=== PATIENT | male | born 1935 | race Caucasian/White ===

== ENCOUNTER 2017-05-15 08:02 | Emergency (ER) | payer MEDICARE, BC ==
[~2017-05-15] VITALS: Ht 185.4 cm; Wt 81.6 kg
[2017-05-15 08:08] VITALS: BP 124/67
== END 2017-05-15 08:31 | disposition home or self-care (01) ==
LOC: ER 08:06
DX: J02.9 Acute pharyngitis, unspecified (principal); E11.9 Type 2 diabetes mellitus without complications
CPT/HCPCS: 99281; A4606; Z7502; Z7610

== ENCOUNTER 2017-06-08 11:17 | Emergency (ER) | payer MEDICARE, BC ==
[~2017-06-08] VITALS: Ht 182.9 cm; Wt 83.9 kg
--- NOTE | 2017-06-08 11:24 | NUR ---
L LOWER EXTREMITY SWELLING AND TENDERNESS X 1 WEEK
--- NOTE | 2017-06-08 11:55 | NUR ---
LAC #20 IV ACCESS. BLOOD SAMPLE COLLECTED SENT TO LAB
[2017-06-08 12:03] LABS: BASOPHILS # (AUTO) 0.1 /CMM (0.0-0.2); EOSINOPHILS # (AUTO) 0.1 /CMM (0.0-0.7); EOSINOPHILS % (AUTO) 1.1 % (0.0-6.0); HEMATOCRIT 40 % (39-51); HEMOGLOBIN 12.6 g/dL (13.5-17.5); LYMPHOCYTES # (AUTO) 2.2 /CMM (0.8-4.8); LYMPHOCYTES % (AUTO) 29.6 % (20.0-44.0); MEAN CORPUSCULAR HEMOGLOBIN 27 PG (26.0-33.0); MEAN CORPUSCULAR HGB CONC 31 g/dl (31.0-36.0); MEAN CORPUSCULAR VOLUME 85 fL (80-96); MONOCYTES # (AUTO) 0.7 /CMM (0.1-1.30); NEUTROPHILS # (AUTO) 4.3 /CMM (1.8-8.9); NEUTROPHILS % (AUTO) 59.3 % (43.0-81.0); PLATELET COUNT (AUTO) 181 /CMM (150-450); RDW COEFFICIENT OF VARIATION 12.5 (11.5-15.0); RED BLOOD CELL COUNT(AUTO) 4.76 MIL/uL (4.5-6.0); WHITE BLOOD COUNT (AUTO) 7.4 K/uL (4.3-11.0)
[2017-06-08] MEDS: PIPERACILLIN /TAZOBACTAM 3.375 G in IV D5W 50 ML IV ONE (12:06)
[2017-06-08 12:13] LABS: CALCIUM, SERUM 8.7 mg/dL (8.5-10.1); CARBON DIOXIDE 27 mmol/L (21-32); CHLORIDE 101 mmol/L (98-107); CREATININE 1.3 mg/dL (0.6-1.3); GLUCOSE 302 mg/dL (74-106); POTASSIUM 4.6 mmol/L (3.5-5.1); SODIUM SERUM 136 mmol/L (136-145); UREA NITROGEN, BLOOD 36 mg/dL (7-18)
[2017-06-08 12:17] LABS: INR 0.96 (0.87-1.13)
[2017-06-08 12:19] LABS: ALANINE AMINOTRANSFERASE 32 U/L (12-78); ALBUMIN 3.1 g/dL (3.4-5.0); ALKALINE PHOSPHATASE 74 U/L (46-116); ASPARTATE AMINOTRANSFERASE 23 U/L (15-37); BILIRUBIN,TOTAL 0.8 mg/dL (0.2-1.0); TOTAL PROTEIN, SERUM 6.9 g/dL (6.4-8.2)
[2017-06-08] MEDS ORDERED: INSULIN REGULAR, HUMAN 100 UNIT/ML 10 ML VIAL ONE (12:29)
[2017-06-08] MEDS: INSULIN REGULAR, HUMAN 100 UNIT/ML 10 ML VIAL IV ONE (12:30)
--- NOTE | 2017-06-08 13:27 | NUR ---
GREEN INSPECTOR AT BEDSIDE
--- NOTE | 2017-06-08 14:03 | NUR ---
IV removed. Catheter intact and site benign. Pressure and 4x4 applied to site. No bleeding noted.
--- NOTE | 2017-06-08 14:03 | NUR ---
Patient discharged to home in stable condition. Written and verbal after care instructions given. Patient verbalizes understanding of instruction.
[2017-06-08 14:05] VITALS: BP 132/84
== END 2017-06-08 14:12 | disposition home or self-care (01) ==
LOC: ER 11:21
DX: L03.116 Cellulitis of left lower limb (principal); E11.621 Type 2 diabetes mellitus with foot ulcer
CPT/HCPCS: 36415; 80053-TC; 85025-TC; 85610-TC; 85730-TC; 93971-TC; A4606; A6402; J1815; J2543; J7060; Z7610

== ENCOUNTER 2017-06-15 15:48 | Emergency (ER) | payer MEDICARE, BC ==
[~2017-06-15] VITALS: Ht 182.9 cm; Wt 83.9 kg
[2017-06-15 15:50] VITALS: BP 142/80
== END 2017-06-15 17:39 | disposition home or self-care (01) ==
LOC: ER 15:56
DX: R68.2 Dry mouth, unspecified (principal); E11.9 Type 2 diabetes mellitus without complications
CPT/HCPCS: 99281; A4606; Z7502; Z7610

== ENCOUNTER 2017-06-28 10:47 | Inpatient (IN) | payer MEDICARE, BC ==
[~2017-06-28] VITALS: Ht 182.9 cm; Wt 88.0 kg
--- NOTE | 2017-06-28 10:56 | NUR ---
LEFT FOOT WOUND CHECK. NO ACTIVE BLEED
--- NOTE | 2017-06-28 11:27 | NUR ---
LAC #20 iv access. blood sample collected sent to lab
[2017-06-28] MEDS ORDERED: PIPERACILLIN /TAZOBACTAM 3.375 G in IV D5W 50 ML IV ONE (11:30)
[2017-06-28] MEDS ORDERED: VANCOMYCIN 1 GM in IV D5W 250 ML IV ONE (11:30)
[2017-06-28] MEDS ORDERED: IV NS 0.9% 1,000 ML BAG IV ONE (11:30)
[2017-06-28] MEDS ORDERED: INSU100I4 SQ (11:34)
--- NOTE | 2017-06-28 11:36 | NUR ---
CALLED NURSING SOCIAL WORK SUPERVISOR FOR M/S BED
[2017-06-28 11:40] LABS: CARBON DIOXIDE 29 mmol/L (21-32); CHLORIDE 104 mmol/L (98-107); CREATININE 1.4 mg/dL (0.6-1.3); GLUCOSE 80 mg/dL (74-106); POTASSIUM 4.6 mmol/L (3.5-5.1); SODIUM SERUM 139 mmol/L (136-145); UREA NITROGEN, BLOOD 27 mg/dL (7-18)
[2017-06-28 11:44] LABS: INR 0.95 (0.87-1.13); PROTHROMBIN TIME 9.9 SECS (9.5-12.7)
[2017-06-28 11:52] LABS: BASOPHILS % (AUTO) 0.3 % (0.0-2.0); EOSINOPHILS # (AUTO) 0.1 /CMM (0.0-0.7); EOSINOPHILS % (AUTO) 0.9 % (0.0-6.0); HEMATOCRIT 44 % (39-51); HEMOGLOBIN 14.3 g/dL (13.5-17.5); LYMPHOCYTES # (AUTO) 3.8 /CMM (0.8-4.8); LYMPHOCYTES % (AUTO) 30.6 % (20.0-44.0); MEAN CORPUSCULAR HEMOGLOBIN 28 PG (26.0-33.0); MEAN CORPUSCULAR HGB CONC 32 g/dl (31.0-36.0); MEAN CORPUSCULAR VOLUME 85 fL (80-96); MONOCYTES # (AUTO) 1.2 /CMM (0.1-1.30); MONOCYTES % (AUTO) 9.6 % (2.0-12.0); NEUTROPHILS # (AUTO) 7.3 /CMM (1.8-8.9); NEUTROPHILS % (AUTO) 58.6 % (43.0-81.0); PLATELET COUNT (AUTO) 202 /CMM (150-450); RDW COEFFICIENT OF VARIATION 13.2 (11.5-15.0); RED BLOOD CELL COUNT(AUTO) 5.16 MIL/uL (4.5-6.0); WHITE BLOOD COUNT (AUTO) 12.5 K/uL (4.3-11.0)
--- NOTE | 2017-06-28 12:25 | NUR ---
PAGED DR ZA BROWER FOR PANEL ADMISSION
--- NOTE | 2017-06-28 12:35 | NUR ---
LUBE MAN AT BEDSIDE
--- NOTE | 2017-06-28 12:43 | NUR ---
REPORT GIVEN TO MURTAZA WELDING MACHINE FEEDER. DR BROWER ADMITTING - CELLULITIS. S/P WOUND DEBRIDEMENT OF LEFT FOOT BY RADHA GUZMAN.
[2017-06-28 13:30] VITALS: BP 117/65
[2017-06-28] MEDS ORDERED: ONDANSETRON HCL/PF 4 MG/2 ML VIAL IVP PRN (13:30)
[2017-06-28] MEDS ORDERED: FEE PK DOSING 1 MIN EA MC ONE (13:30)
[2017-06-28] MEDS ORDERED: MAG HYDROX/AL HYDROX/SIMETH 30 ML UDC PO PRN (13:30)
[2017-06-28] MEDS ORDERED: MAGNESIUM HYDROXIDE 30 ML UDC PO PRN (13:30)
[2017-06-28] MEDS ORDERED: Z GUARD REMEDY 2 OZ OINT TP PRN (13:30)
[2017-06-28] MEDS ORDERED: DEXTROSE 50%-WATER 50 ML DISP.SYRIN IV PRN (13:30)
[2017-06-28] MEDS ORDERED: ACETAMINOPHEN 325 MG TABLET PO PRN (13:30)
[2017-06-28] MEDS ORDERED: HYDROCODONE/APAP 5/325MG 1 EACH TABLET PO PRN (13:30)
[2017-06-28 16:35] VITALS: BP 144/76
[2017-06-28] MEDS: BLOOD SUGAR DIAGNOSTIC 1 EACH STRIP VI SCH ×2 (17:27→21:43)
[2017-06-28] MEDS: INSULIN REGULAR, HUMAN 100 UNIT/ML 3 ML VIAL SQ PRN (17:29)
[2017-06-28] MEDS: CEFTRIAXONE 1 G in IV D5W 50 ML IV SCH (17:33)
[2017-06-28] MEDS: IV NS 0.9% 1,000 ML IV PRN (17:43)
[2017-06-28] MEDS ORDERED: PIPERACILLIN /TAZOBACTAM 3.375 G in IV D5W 50 ML IV SCH (18:00)
--- NOTE | 2017-06-28 19:30 | NUR ---
MS RN NOTES RECEIVED A/O X4,SITTING OM EDGE OF BED.LEFT FOOT DRESSING INTACT AND DRY,REDNESS NOTED ON BOTH LEGS.ENCOURAGED TO ELEVATE ON PILLOWS WHILE SLEEPING.SALINE LOCK RIGHT AC INTACT AND PATENT.NS AT 75ML/HR RATE IN PROGRESS VIA IV PUMP,SITE PATENT.AMBULATE WITH STEADY GAIT.CALL LIGHT IN REACH,NEEDS ANTICIPATED.
[2017-06-28 20:00] VITALS: BP 135/80
[2017-06-28] MEDS: LORAZEPAM 0.5 MG TABLET PO PRN (20:33)
--- NOTE | 2017-06-28 20:33 | NUR ---
MS RN NOTES FEELING ANXIOUS,MEDICATED WITH ATIVAN 0.5MG PO ORDERED AND PER PATIENT REQUEST.ENCOURAGED TO STAY IN BED FOR SAFETY.
[2017-06-28] MEDS: *INSULIN REGULAR(HUMULIN R)HUM 100 UNIT/ML VIAL SQ PRN (21:45)
--- NOTE | 2017-06-28 21:59 | NUR ---
MS RN NOTES ACC-CHECK BLOOD SUGAR CHECK 189,COVERED WITH HUMULIN R 3 UNITS PER SLIDING SCALE.SNACKS OFFERED BUT REFUSED
[2017-06-28] MEDS: ZOLPIDEM TARTRATE 5 MG TABLET PO PRN (22:55)
--- NOTE | 2017-06-28 22:55 | NUR ---
MS RN NOTES C/O INSOMNIA,AMBIEN 5MG PO GIVEN ORDERED.
--- NOTE | 2017-06-28 23:19 | NUR ---
MS RN NOTES IV SITE INFILTRATED,NEW SALINE LOCK PLACE ON LEFT FOREARM #22,SAME IVF INFUSING.
[2017-06-29] MEDS ORDERED: VANCOMYCIN 1 GM in IV D5W 250 ML IV SCH ×2
--- NOTE | 2017-06-29 04:44 | NUR ---
MS RN NOTES AWAKE,FEELING ANXIOUS,ATIVAN 0.5MG PO GIVEN PER PATIENT REQUEST.
[2017-06-29] MEDS: LORAZEPAM 0.5 MG TABLET PO PRN ×3 (04:47→19:56)
--- NOTE | 2017-06-29 05:15 | NUR ---
MS RN NOTES FEELING HUNGRY,TUNA SANDWICH GIVEN PER PATIENT REQUEST.
--- NOTE | 2017-06-29 05:30 | NUR ---
MS RN NOTES ACCU-CHECK BLOOD SUGAR CHECK 294,GIVE HUMULIN R 9 UNITS SQ ON LEFT DELTOID PER MODERATE SLIDING SCALE.
[2017-06-29] MEDS: BLOOD SUGAR DIAGNOSTIC 1 EACH STRIP VI SCH ×4 (05:35→21:28)
[2017-06-29] MEDS: INSULIN REGULAR, HUMAN 100 UNIT/ML 3 ML VIAL SQ PRN ×3 (05:37→17:25)
--- NOTE | 2017-06-29 06:32 | NUR ---
MS RN NOTES SLEPT ABOUT 5 HOURS AT NIGHT WITH PHARMACOLOGICAL INTERVENTION.MED COMPLIANT.STILL WITH PERIODS OF ANXIOUSNESS ONCE IN A WHILE.IVF IN PROGRESS,SITE REMAINS PATENT.DENIES PAIN ON THE LEFT FOOT.CALL LIGHT IN REACH,NEEDS ATTENDED.WILL ENDORSE TO DAY NURSE FOR MIGUELINA.
[2017-06-29 07:11] LABS: BASOPHILS % (AUTO) 0.2 % (0.0-2.0); EOSINOPHILS # (AUTO) 0.1 /CMM (0.0-0.7); EOSINOPHILS % (AUTO) 1.4 % (0.0-6.0); HEMATOCRIT 40 % (39-51); HEMOGLOBIN 13.1 g/dL (13.5-17.5); LYMPHOCYTES # (AUTO) 2.5 /CMM (0.8-4.8); MEAN CORPUSCULAR HEMOGLOBIN 28 PG (26.0-33.0); MEAN CORPUSCULAR HGB CONC 33 g/dl (31.0-36.0); MEAN CORPUSCULAR VOLUME 85 fL (80-96); MONOCYTES # (AUTO) 0.7 /CMM (0.1-1.30); MONOCYTES % (AUTO) 9.7 % (2.0-12.0); NEUTROPHILS % (AUTO) 54.7 % (43.0-81.0); PLATELET COUNT (AUTO) 159 /CMM (150-450); RDW COEFFICIENT OF VARIATION 13.4 (11.5-15.0); RED BLOOD CELL COUNT(AUTO) 4.72 MIL/uL (4.5-6.0); WHITE BLOOD COUNT (AUTO) 7.3 K/uL (4.3-11.0)
[2017-06-29 07:30] LABS: CALCIUM, SERUM 7.9 mg/dL (8.5-10.1); CARBON DIOXIDE 24 mmol/L (21-32); CHLORIDE 103 mmol/L (98-107); CREATININE 1.4 mg/dL (0.6-1.3); GLUCOSE 341 mg/dL (74-106); MAGNESIUM 1.7 mg/dL (1.8-2.4); PHOSPHORUS 2.8 mg/dL (2.5-4.9); POTASSIUM 4.3 mmol/L (3.5-5.1); SODIUM SERUM 137 mmol/L (136-145); UREA NITROGEN, BLOOD 18 mg/dL (7-18)
--- NOTE | 2017-06-29 07:56 | NUR ---
EFE DOVE RN: INITIAL NOTE RECEIVED PT ALERT AND ORIENTED X4. ABLE TO AMBULATE TO RESTROOM WITH VISUAL ASSISTANCE. CCHO DIET. NS RUNNING AT 75ML/HR IN LEFT FOREARM. SITE CLEAR. PATENT, NO INFILTRATION OR REDNESS NOTED. NO DISTRESS, NO SOB. RESTING COMFORTABLY IN BED. CALL LIGHT WITHIN REACH.
[2017-06-29 08:00] VITALS: BP 121/81
[2017-06-29] MEDS: PANTOPRAZOLE 40 MG TABLET.DR PO SCH (08:23)
[2017-06-29] MEDS: Magnesium 1GM/D5W 100ML PREMIX 100 ML IV SCH ×2 (11:06→12:19)
[2017-06-29] MEDS: VANCOMYCIN 0.75 GM in IV D5W 250 ML IV SCH (12:20)
[2017-06-29] MEDS: IV NS 0.9% 1,000 ML IV PRN (15:12)
--- NOTE | 2017-06-29 16:00 | NUR ---
PT WAS SEEN BY DR NAJERA AND ASSESSED THE WOUND.WOUND TX DONE ORDERED AND CARRIED OUT.PT DENIES ANY PAIN OR DISTRESS.URINE FOR LAB TEST SENT.CALL LIGHT PLACED WITHIN REACH.
[2017-06-29 16:07] VITALS: BP 136/90
[2017-06-29] MEDS: CEFTRIAXONE 1 G in IV D5W 50 ML IV SCH (17:02)
--- NOTE | 2017-06-29 18:03 | NUR ---
MED SURGE RN: CLOSING NOTE PT ALERT AND ORIENTED X4. NO DISTRESS NOTED. NO SOB NOTED. ATE LUNCH/ DINNER. NO N/V NOTED. VS STABLE. LEFT FOREARM IV RUNNING NS AT 75ML/HR. NO REDNESS, PATENT, NO INFILTRATION NOTED. URINE CULTURE COLLECTED X1 TODAY. ANOTHER ORDER SET TO COLLECT FOR 06/30/17. RESTING COMFORTABLY IN BED. CALL LIGHT WITHIN REACH.
--- NOTE | 2017-06-29 19:30 | NUR ---
MS RN NOTE: PATIENT RESTING IN BED, NO ACUTE DISTRESS NOTED. BREATHING EVEN AND UNLABORED, NO SOB NOTED. IV TO LFA IN PLACE, INFUSING NS AT 75ML/HR. DRESSING TO LEFT FOOT IN PLACE, CLEAN AND DRY. NO S/S OF HYPER/HYPOGLYCEMIA NOTED. BED LOCKED AND IN LOWEST POSITION, CALL LIGHT IN REACH. WILL CONTINUE TO MONITOR.
[2017-06-29 20:00] VITALS: BP 142/75
--- NOTE | 2017-06-29 20:00 | NUR ---
MS RN NOTE: PATIENT ANXIOUS AND REQUESTING FOR ANTIANXIETY MEDICATION. ATIVAN 0.5MG ORAL GIVEN PER MD ORDER. WILL CONTINUE TO MONITOR.
[2017-06-29 20:18] LABS: APPEARANCE,URINE CLEAR (CLEAR); BILIRUBIN,URINE NEGATIVE (NEGATIVE); BLOOD, URINE NEGATIVE Ery/uL (NEGATIVE); COLOR,URINE YELLOW (YELLOW); KETONES,URINE NEGATIVE (NEGATIVE); LEUKOCYTE ESTERASE ,URINE NEGATIVE (NEGATIVE); NITRITE, URINE NEGATIVE (NEGATIVE); PH,URINE 5.5 (5.0-8.0); PROTEIN,URINE NEGATIVE (NEGATIVE); UGLUCOSE 1+ mg/dL (NEGATIVE); UROBILINOGEN,URINE 0.2 EU/dL (0.2)
[2017-06-29 20:24] LABS: CREATININE, URINE 30.2 MG/DL (30.0-125.0); URINE TOTAL PROTEIN 4.3 mg/dL (0-11.9)
[2017-06-29 20:26] LABS: BACTERIA,URINE Rare /HPF (None Seen); RBC,URINE 0-2 /HPF (0-2); SQUAMOUS EPITHELIAL CELL,UR Few /HPF (None Seen); WBC,URINE 0-2 /HPF (0-3)
[2017-06-29 21:24] LABS: EOSINOPHIL,URINE None Seen
[2017-06-29] MEDS: *INSULIN REGULAR(HUMULIN R)HUM 100 UNIT/ML VIAL SQ PRN (21:36)
[2017-06-29] MEDS: ZOLPIDEM TARTRATE 5 MG TABLET PO PRN (22:11)
--- NOTE | 2017-06-29 22:15 | NUR ---
MS RN NOTE: PATIENT BLOOD SUGAR LEVEL 272 MG/DL, PATIENT TO RECEIVE 6 UNITS OF INSULIN PER MD ORDER. NO S/S OF HYPER/HYPOGLYCEMIA NOTED. PATIENT RECEIVE FOR SLEEPING MEDICATION. AMBIEN 5MG ORAL GIVEN PER MD ORDER. WILL CONTINUE TO MONITOR.
[2017-06-30] MEDS: VANCOMYCIN 0.75 GM in IV D5W 250 ML IV SCH ×2 (00:16→12:25)
--- NOTE | 2017-06-30 06:30 | NUR ---
MS RN NOTE: PATIENT RESTING IN BED, NO ACUTE DISTRESS NOTED. BREATHING EVEN AND UNLABORED, NO SOB NOTED. IV TO LFA IN PLACE, INFUSING NS AT 75ML/HR. DRESSING TO LEFT FOOT IN PLACE, CLEAN AND DRY. PATIENT BLOOD SUGAR LEVEL 226 MG/DL, PATIENT TO RECEIVE 6 UNITS PER SLIDING SCALE. NO S/S OF HYPER/HYPOGLYCEMIA NOTED. BED LOCKED AND IN LOWEST POSITION, CALL LIGHT IN REACH. WILL ENDORSE TO DAY NURSE TO CONTINUE WITH PLAN OF CARE.
[2017-06-30] MEDS: BLOOD SUGAR DIAGNOSTIC 1 EACH STRIP VI SCH ×2 (06:34→12:12)
[2017-06-30] MEDS: INSULIN REGULAR, HUMAN 100 UNIT/ML 3 ML VIAL SQ PRN ×2 (06:58→12:12)
--- NOTE | 2017-06-30 07:20 | NUR ---
RN MS NOTES PATIENT ALERT AND ORIENTED, ABLE TO MAKE NEEDS KNOWN, NO DISTRESS NOTED, ASKING IF HE IS GOING HOME TODAY, INFORMED PATIENT TO WAIT FOR THE DOCTOR TO MAKE ROUNDS, AND PATIENT UNDERSTOOD. ENCOURAGE PATIENT TO CALL FOR ASSISTANCE WHEN AMBULATING TO RESTROOM, NEEDS ATTENDED AND ANTICIPATED, CALL LIGHT WITHIN REACH, SAFETY MEASURES IN PLACED, WILL CONTINUE TO MONITOR.
[2017-06-30 07:26] LABS: CALCIUM, SERUM 8.1 mg/dL (8.5-10.1); CARBON DIOXIDE 23 mmol/L (21-32); CHLORIDE 109 mmol/L (98-107); CREATININE 1.1 mg/dL (0.6-1.3); GLUCOSE 237 mg/dL (74-106); POTASSIUM 4.3 mmol/L (3.5-5.1); SODIUM SERUM 141 mmol/L (136-145); UREA NITROGEN, BLOOD 15 mg/dL (7-18)
[2017-06-30 08:00] VITALS: BP 129/74
[2017-06-30] MEDS: PANTOPRAZOLE 40 MG TABLET.DR PO SCH (08:48)
[2017-06-30] MEDS ORDERED: DAKINS QUARTER STRENGTH (0.125%) 480 ML BOTTLE TOP SCH (09:00)
--- NOTE | 2017-06-30 09:29 | NUR ---
WOUND CARE CONSULT: PT REFUSED SKIN ASSESSMENT. DEFER TO DR NAJERA FOR FOOT. ALL SKIN PROTECTION MEASURES IN PLACE AND DISCUSSED WITH NURSING STAFF. WILL SEE PRN. PT IS AMBULATORY. MD IN AGREEMENT WITH PLAN OF CARE.
[2017-06-30] MEDS ORDERED: SULF1TAB48 PO (12:35)
--- NOTE | 2017-06-30 13:08 | NUR ---
BRUSHING OPERATOR NOTES PATIENT ALERT AND ORIENTED, BREATHING EVEN AND UNLABORED, NO DISTRESS, WOUND TREATMENT DONE, DRESSING CHANGED, C/D/I, POST OP SHOE OFFERED BUT PATIENT STATED HE ALREADY HAS ONE AT HOME AND HE REFUSED ANOTHER ONE, PATIENT SKIN ASSESSMENT COMPLETED, PHOTOS TAKEN AND PLACED IN CHART, PATIENT RECEIVED DISCHARGE INSTRUCTIONS AND VERBALIZED UNDERSTANDING, PRESCRIPTION ELECTRONICALLY SENT TO [facility] AND CONFIRMED PRESCRIPTION WENT THROUGH, BELONGINGS RECONCILED, PIV REMOVED, SECURED WITH GAUZE AND TAPE, PER PATIENT HE WILL DRIVE HIMSELF HOME, ALL NEEDS ATTENDED AND LEFT THE FACILITY IN NO DISTRESS.
== END 2017-06-30 13:05 | disposition home health service (06) | DRG 854 ==
LOC: ER 10:50 → MED 12:54
PROVIDERS: ADMIT Internal Medicine; ATTEND Internal Medicine
PROC: 0KBW0ZZ Excision of Left Foot Muscle, Open Approach (ICD-10-PCS; principal; 2017-06-28)
PROC: 0JBR0ZZ Excision of Left Foot Subcutaneous Tissue and Fascia, Open Approach (ICD-10-PCS; 2017-06-28)
DX: A41.9 Sepsis, unspecified organism (principal); L03.115 Cellulitis of right lower limb; E11.21 Type 2 diabetes mellitus with diabetic nephropathy; E11.40 Type 2 diabetes mellitus with diabetic neuropathy, unspecified; L03.116 Cellulitis of left lower limb; M86.9 Osteomyelitis, unspecified; E11.621 Type 2 diabetes mellitus with foot ulcer; E11.65 Type 2 diabetes mellitus with hyperglycemia; L97.529 Non-pressure chronic ulcer of other part of left foot with unspecified severity; Z79.4 Long term (current) use of insulin; E11.69 Type 2 diabetes mellitus with other specified complication; M85.80 Other specified disorders of bone density and structure, unspecified site; I89.0 Lymphedema, not elsewhere classified; Z90.49 Acquired absence of other specified parts of digestive tract; E11.22 Type 2 diabetes mellitus with diabetic chronic kidney disease; N18.9 Chronic kidney disease, unspecified
CPT/HCPCS: 36415; 73630-TC; 80048-TC; 80202-TC; 81000-TC; 82570-TC; 82962-TC; 83605-TC; 83735-TC; 84100-TC; 84155-TC; 84300-TC; 85025-TC; 85730-TC; 87040-TC; 87081-TC; 93971-TC; A4606; A6402; A6403; J0696; J1815; J2543; J3370; J3475; J7030; J7060; Z7610

== ENCOUNTER 2018-02-14 12:32 | Inpatient (IN) | payer MEDICARE, BC ==
[~2018-02-14] VITALS: Ht 185.4 cm; Wt 83.5 kg
[~2018-02-14 12:32] MED LIST: INSU100I4 SQ; SULF1TAB48 PO
--- NOTE | 2018-02-14 12:37 | NUR ---
BBRA FROM [facility] FOR SYNCOPE. [id number]. PLACED ON MONITOR. AWAITING MD ORDER
[2018-02-14 13:20] LABS: BASOPHILS # (AUTO) 0.1 /CMM (0.0-0.2); BASOPHILS % (AUTO) 0.9 % (0.0-2.0); EOSINOPHILS # (AUTO) 0.1 /CMM (0.0-0.7); EOSINOPHILS % (AUTO) 0.7 % (0.0-6.0); HEMATOCRIT 48 % (39-51); HEMOGLOBIN 15.9 g/dL (13.5-17.5); LYMPHOCYTES # (AUTO) 3.9 /CMM (0.8-4.8); LYMPHOCYTES % (AUTO) 35.6 % (20.0-44.0); MEAN CORPUSCULAR HEMOGLOBIN 27 PG (26.0-33.0); MEAN CORPUSCULAR HGB CONC 33 g/dl (31.0-36.0); MEAN CORPUSCULAR VOLUME 82 fL (80-96); MONOCYTES # (AUTO) 0.7 /CMM (0.1-1.30); MONOCYTES % (AUTO) 6.1 % (2.0-12.0); NEUTROPHILS # (AUTO) 6.2 /CMM (1.8-8.9); NEUTROPHILS % (AUTO) 56.7 % (43.0-81.0); PLATELET COUNT (AUTO) 177 /CMM (150-450); RDW COEFFICIENT OF VARIATION 12.4 (11.5-15.0); RED BLOOD CELL COUNT(AUTO) 5.86 MIL/uL (4.5-6.0); WHITE BLOOD COUNT (AUTO) 10.9 K/uL (4.3-11.0)
[2018-02-14 13:24] LABS: CALCIUM, SERUM 9.9 mg/dL (8.5-10.1); CARBON DIOXIDE 22 mmol/L (21-32); CHLORIDE 101 mmol/L (98-107); CREATININE 1.8 mg/dL (0.6-1.3); GLUCOSE 237 mg/dL (74-106); POTASSIUM 3.8 mmol/L (3.5-5.1); SODIUM SERUM 138 mmol/L (136-145); UREA NITROGEN, BLOOD 36 mg/dL (7-18)
[2018-02-14 13:29] LABS: ALANINE AMINOTRANSFERASE 30 U/L (12-78); ALBUMIN 3.6 g/dL (3.4-5.0); ALKALINE PHOSPHATASE 86 U/L (46-116); ASPARTATE AMINOTRANSFERASE 17 U/L (15-37); BILIRUBIN,DIRECT 0.2 mg/dL (0.0-0.2); BILIRUBIN,TOTAL 1.1 mg/dL (0.2-1.0); TOTAL PROTEIN, SERUM 7.6 g/dL (6.4-8.2)
[2018-02-14] MEDS ORDERED: IV NS 0.9% 500 ML BAG IV ONE (13:30)
[2018-02-14 13:32] LABS: TROPONIN I < 0.017 ng/mL (0.00-0.056)
[2018-02-14 13:43] LABS: INR 0.94 (0.87-1.13)
--- NOTE | 2018-02-14 14:15 | NUR ---
CALLED TO GIVE REPORT PT'S RECEIVING RN PICKING UP BLOOD WANTS US TO CALL BACK
--- NOTE | 2018-02-14 14:25 | NUR ---
CALLED AGAIN NURSE NOT READY YET
--- NOTE | 2018-02-14 14:57 | NUR ---
GAVE REPORT TO CHOCO VOGEL TELE SYNCOPE AP GARCIA ADMITTING
--- NOTE | 2018-02-14 15:30 | NUR ---
TELE/TEACHER DANCING PATIENT ADMITTED FROM ER IN STABLE CONDITION. REPORT GIVEN BY LOREN VOGEL FROM ER. A/O X 4. NO SIGNS OF ACUTE DISTRESS. NO COMPLAIN OF PAIN OR DISCOMFORT. REPORT GIVEN BY LOREN VOGEL FROM ER. ON TELE MONITOR, NOTED WITH SINUS RHYTHM. IV SITE LEFT WRIST # 18 INTACT AND FLUSHING WELL. SKIN NOTED INTACT AT THIS TIME. AMBULATES WITH STAND BY ASSIST. CONTINENT OF BOWEL AND BLADDER. ALL NEEDS ATTENDED TO. CALL LIGHT WITHIN REACH. WILL CONTINUE TO MONITOR TO ENSURE SAFETY.
[2018-02-14 16:00] VITALS: BP 116/78
[2018-02-14] MEDS: BLOOD SUGAR DIAGNOSTIC 1 EACH STRIP IN SCH ×2 (16:27→22:18)
[2018-02-14] MEDS ORDERED: ACETAMINOPHEN 325 MG TABLET PO PRN (16:30)
[2018-02-14] MEDS ORDERED: ONDANSETRON HCL/PF 4 MG/2 ML VIAL IVP PRN (16:30)
[2018-02-14] MEDS ORDERED: HYDROCODONE/APAP 5/325MG 1 EACH TABLET PO PRN (16:30)
[2018-02-14] MEDS ORDERED: DEXTROSE 50%-WATER 50 ML DISP.SYRIN IV PRN (16:30)
[2018-02-14] MEDS ORDERED: ZOLPIDEM TARTRATE 5 MG TABLET PO PRN (16:30)
[2018-02-14] MEDS ORDERED: MAG HYDROX/AL HYDROX/SIMETH 30 ML UDC PO PRN (16:30)
[2018-02-14] MEDS ORDERED: Z GUARD REMEDY 2 OZ OINT TP PRN (16:30)
[2018-02-14] MEDS: IV NS 0.9% 1,000 ML IV PRN (17:05)
[2018-02-14] MEDS: INSULIN REGULAR, HUMAN 100 UNIT/ML 3 ML VIAL SQ PRN ×2 (18:11→21:43)
--- NOTE | 2018-02-14 18:35 | NUR ---
TELE/RN CLOSING NOTE PATIENT IN BED IN STABLE CONDITION. A/O X 4. NO SIGNS OF ACUTE DISTRESS. NO COMPLAIN OF PAIN OR DISCOMFORT. ON TELE MONITOR WITH SINUS RHYTHM WITH PVC IN 90'S. ALL NEEDS ATTENDED TO. CALL LIGHT WITHIN REACH. WILL ENDORSE TO NEXT SHIFT FOR CONTINUITY OF CARE.
[2018-02-14 20:00] VITALS: BP 129/76
--- NOTE | 2018-02-14 20:05 | NUR ---
RN NOTES RECEIVED PATIENT IN BED, ALERT AND ORIENTED X4, NO SOB, ON ROOM AIR, DENIES ANY PAIN AT THIS TIME, LEFT WRIST PERIPHERAL LINE IS INFUSING WELL, UNSTEADY GAIT, ABLE TO WALK TO THE TOILET WITH SUPERVISION, DENIES DIZZINESS UPON STANDING. NEEDS ATTENDED, CALL LIGHT WITHIN REACH.
[2018-02-14 22:00] VITALS: BP 129/76
[2018-02-15] VITALS: BP 105/65
[2018-02-15 04:00] VITALS: BP 112/56
[2018-02-15] MEDS: IV NS 0.9% 1,000 ML IV PRN (06:08)
[2018-02-15] MEDS: INSULIN REGULAR, HUMAN 100 UNIT/ML 3 ML VIAL SQ PRN ×2 (06:24→11:54)
[2018-02-15] MEDS: BLOOD SUGAR DIAGNOSTIC 1 EACH STRIP IN SCH ×2 (06:35→11:21)
--- NOTE | 2018-02-15 06:46 | NUR ---
RN NOTES PATIENT IS AWAKE AND ALERT, ON ROOM AIR, NO SOB, NO COMPLAIN OF PAIN AT THIS TIME, SLEPT FOR 5 HOURS, ALL NEEDS ATTENDED, CALL LIGHT WITHIN REACH.
[2018-02-15 07:28] LABS: BASOPHILS % (AUTO) 0.4 % (0.0-2.0); EOSINOPHILS # (AUTO) 0.1 /CMM (0.0-0.7); EOSINOPHILS % (AUTO) 1.2 % (0.0-6.0); HEMATOCRIT 41 % (39-51); HEMOGLOBIN 13.6 g/dL (13.5-17.5); LYMPHOCYTES # (AUTO) 4.1 /CMM (0.8-4.8); LYMPHOCYTES % (AUTO) 44.9 % (20.0-44.0); MEAN CORPUSCULAR HEMOGLOBIN 28 PG (26.0-33.0); MEAN CORPUSCULAR HGB CONC 33 g/dl (31.0-36.0); MEAN CORPUSCULAR VOLUME 83 fL (80-96); MONOCYTES # (AUTO) 0.7 /CMM (0.1-1.30); MONOCYTES % (AUTO) 7.4 % (2.0-12.0); NEUTROPHILS # (AUTO) 4.2 /CMM (1.8-8.9); NEUTROPHILS % (AUTO) 46.1 % (43.0-81.0); PLATELET COUNT (AUTO) 163 /CMM (150-450); RDW COEFFICIENT OF VARIATION 13.1 (11.5-15.0); RED BLOOD CELL COUNT(AUTO) 4.97 MIL/uL (4.5-6.0); WHITE BLOOD COUNT (AUTO) 9.2 K/uL (4.3-11.0)
--- NOTE | 2018-02-15 07:30 | NUR ---
SEED SERVICE ADVISOR OPENING NOTE PATIENT IS ALERT AND ORIENTED x4. NO SOB OR DISTRESS NOTED. CALL LIGHT WITHIN REACH. SAFETY MEASURES IMPLEMENTED. ABLE TO COMMUNICATE NEEDS. IV INTACT AND PATENT NO REDNESS OR SWELLING NOTED WITH IV FLUIDS RUNNING AT 75 ML/HR TOLERATING WELL. NO DIZZINESS NOTED AT THIS TIME. BLOOD SUGARS TO BE MONITORED THROUGHOUT SHIFT. ON ROOM AIR AT 98% TOLERATING WELL. PENDING CT HEAD WITHOUT CONTRAST TO BE DONE. WILL CONTINUE TO MONITOR THROUGHOUT SHIFT
[2018-02-15 07:37] LABS: CALCIUM, SERUM 8.5 mg/dL (8.5-10.1); CARBON DIOXIDE 22 mmol/L (21-32); CHLORIDE 103 mmol/L (98-107); CREATININE 1.3 mg/dL (0.6-1.3); GLUCOSE 342 mg/dL (74-106); MAGNESIUM 1.8 mg/dL (1.8-2.4); PHOSPHORUS 2.8 mg/dL (2.5-4.9); SODIUM SERUM 137 mmol/L (136-145); UREA NITROGEN, BLOOD 26 mg/dL (7-18)
[2018-02-15 07:42] LABS: CHOLESTEROL 216 mg/dL (<200); HDL CHOLESTEROL 35 mg/dL (40-60); LDL 134 mg/dL (0-99); TRIGLYCERIDES 317 mg/dL (30-150)
[2018-02-15 08:00] VITALS: BP 123/67
[2018-02-15 08:37] LABS: TROPONIN I < 0.017 ng/mL (0.00-0.056)
[2018-02-15 08:43] LABS: THYROID STIMULATING HORMONE 1.642 uIU/mL (0.358-3.74)
[2018-02-15] MEDS ORDERED: ENOXAPARIN SODIUM 40 MG/0.4 ML DISP.SYRIN SQ SCH (09:00)
[2018-02-15] MEDS ORDERED: LOSARTAN POTASSIUM 50 MG TABLET PO SCH (09:00)
[2018-02-15 09:43] VITALS: BP_SYST 103; BP_SYST 123; BP_DIAS 55; BP_DIAS 61; BP_DIAS 67
--- NOTE | 2018-02-15 10:00 | NUR ---
RN NOTE PATIENT NOW MEDSURG, OKAY TO TRANSFER ALL PREVIOUS ORDERS.
--- NOTE | 2018-02-15 11:55 | NUR ---
MS RN NOTE URINE SAMPLE COLLECTED AND SENT TO LAB FOR RESULTS
--- NOTE | 2018-02-15 12:01 | NUR ---
MS RN NOTE PATIENT'S BLOOD SUGAR-375 10 UNITS GIVEN. FOOD AT BEDSIDE
[2018-02-15] MEDS ORDERED: ATOR10TA PO (14:03)
[2018-02-15] MEDS ORDERED: LOSA50TA3 PO (14:03)
[2018-02-15 14:29] LABS: BILIRUBIN,URINE NEGATIVE (NEGATIVE); BLOOD, URINE NEGATIVE Ery/uL (NEGATIVE); COLOR,URINE YELLOW (YELLOW); KETONES,URINE NEGATIVE (NEGATIVE); LEUKOCYTE ESTERASE ,URINE 1+ (NEGATIVE); NITRITE, URINE NEGATIVE (NEGATIVE); PROTEIN,URINE NEGATIVE (NEGATIVE); UGLUCOSE 3+ mg/dL (NEGATIVE); UROBILINOGEN,URINE 0.2 EU/dL (0.2)
[2018-02-15 14:37] LABS: APPEARANCE,URINE SLIGHTLY HAZY (CLEAR)
[2018-02-15 14:41] LABS: BACTERIA,URINE None seen /HPF (None Seen); RBC,URINE 0-2 /HPF (0-2)
[2018-02-15 14:42] LABS: SQUAMOUS EPITHELIAL CELL,UR Rare /HPF (None Seen)
--- NOTE | 2018-02-15 14:42 | NUR ---
MS VOGEL AMA/DISCHARGE NOTE PATIENT LEFT AMA TO HOME IN STABLE CONDITION. NO PAIN AT THIS TIME. NO PAIN AT THIS TIME. NO SOB OR DISTRESS NOTED. ALL DUE MEDICATIONS GIVEN ORDERED. IV REMOVED, SKIN INTACT. REFUSED SKIN PICTURES UPON AMA. ALL BELONGINGS WITH PATIENT UPON DISCHARGE REFUSED TO SIGN BELONGINGS LIST. Addendum: 02/15/18 at 1453 by FRANCIS BRADSHAW RN [id number]
[2018-02-15] MEDS ORDERED: ATORVASTATIN 10 MG TABLET PO SCH (22:00)
== END 2018-02-15 14:39 | disposition left against medical advice (07) | DRG 73 ==
LOC: ER 12:36 → TELE 13:31 → MED 02-15 09:01
PROVIDERS: ADMIT Nurse Practitioner Acute Care; ATTEND Nurse Practitioner Acute Care
DX: G90.8 Other disorders of autonomic nervous system (principal); N17.0 Acute kidney failure with tubular necrosis; E86.0 Dehydration; Z79.4 Long term (current) use of insulin; Z79.84 Long term (current) use of oral hypoglycemic drugs; E11.21 Type 2 diabetes mellitus with diabetic nephropathy; E11.621 Type 2 diabetes mellitus with foot ulcer; L97.509 Non-pressure chronic ulcer of other part of unspecified foot with unspecified severity; I95.1 Orthostatic hypotension; E78.5 Hyperlipidemia, unspecified
CPT/HCPCS: 36415; 70450-TC; 71045-TC; 80048-TC; 80061-TC; 80076-TC; 80305; 81000-TC; 82306; 82962-TC; 83735-TC; 84100-TC; 84439-TC; 84443-TC; 84484-TC; 85025-TC; 85730-TC; 87081-TC; 87086-TC; 93307-TC; A4606; J1650; J1815; J7030; J7040; Z7610